=== PATIENT | male | born 1990 | race African-American/Black ===

== ENCOUNTER 2019-02-13 06:34 | Emergency (ER) | payer MEDICAID ==
[~2019-02-13] VITALS: Ht 185.4 cm; Wt 107.0 kg
[2019-02-13] MEDS ORDERED: DEXAMETHASONE 10 MG/ML VIAL IM ONE (07:30)
[2019-02-13 08:43] VITALS: BP 158/118
== END 2019-02-13 09:43 | disposition home or self-care (01) ==
LOC: ER 06:34
DX: J02.9 Acute pharyngitis, unspecified (principal); J45.909 Unspecified asthma, uncomplicated; Z88.0 Allergy status to penicillin; Z98.890 Other specified postprocedural states
CPT/HCPCS: 87070; 87430; 96372; 99283; J1100